=== PATIENT | female | born 1955 | race Caucasian/White ===

== ENCOUNTER 2016-07-13 14:02 | Emergency (ER) | payer MEDICARE ==
--- NOTE | 2016-07-13 14:35 | ERPHSYRPT ---
- History of Present Illness Time Seen by Provider: 07/13/16 14:30 Source: patient Exam Limitations: no limitations Patient Subjective Stated Complaint: pt states she had right great toenail removed a week 1/2 ago. pt states she has pain and area around toe is red. Triage Nursing Assessment: pt pink, warm, dry. right great toes has redness and swelling. tender to touch. Physician History: Patient had right first toenail removed on July 02 of this year due to severe toenail infection. Patient was apparently doing well until 5 days ago when she injured her right first toe walking down steps. Since then she noticed increase right first toe swelling and redness. Denies any drainage, fever or chills. Patient states there is some discomfort with weightbearing, otherwise patient with minimal pain. Method of Injury: direct blow (walking down steps) Occurred: days ago (5) Quality: intermittent Severity of Pain-Max: moderate Severity of Pain-Current: mild Lower Extremities Pain: 1st toe: right (redness and swelling to the area) Allergies/Adverse Reactions: epinephrine Allergy (Verified 07/13/16 14:21) lidocaine Allergy (Verified 07/13/16 14:21) Home Medications: Aspirin EC 325 mg [Ecotrin 325 MG] 325 mg PO DAILY 07/13/16 [History] Clopidogrel Bisulfate [Plavix] 75 mg PO DAILY 07/13/16 [History] Fluoxetine HCl [Prozac] 20 mg PO DAILY 07/13/16 [History] Golimumab [Simponi Aria] 50 mg IV UD 07/13/16 [History] Isosorbide Mononitrate 30 mg [Imdur 30 MG] 30 mg PO DAILY 07/13/16 [History ] Isosorbide Mononitrate [Isosorbide Mononitrate ER] 60 mg PO DAILY 07/13/16 [ History] Lansoprazole 30 mg PO DAILY 07/13/16 [History] Levothyroxine Sodium 100 Mcg [Synthroid 100 Mcg] 100 mcg PO DAILY 07/13/16 [History] Lovastatin 40 mg PO HS 07/13/16 [History] Varenicline Tartrate [Chantix] 1 each PO DAILY 07/13/16 [History] Hx Tetanus, Diphtheria Vaccination/Date Given: Yes (up to date) Hx Influenza Vaccination/Date Given: Yes Hx Pneumococcal Vaccination/Date Given: Yes Immunizations Up to Date: Yes - Review of Systems Constitutional: No Fever, No Chills Eyes: No Symptoms Ears, Nose, & Throat: No Symptoms Respiratory: No Cough, No Dyspnea Cardiac: No Chest Pain, No Edema, No Syncope Abdominal/Gastrointestinal: No Abdominal Pain, No Nausea, No Vomiting, No Diarrhea Genitourinary Symptoms: No Dysuria Musculoskeletal: Injury (R 1st toe), No Back Pain, No Neck Pain Skin: Cellulitis, No Rash Neurological: No Dizziness, No Focal Weakness, No Sensory Changes Psychological: No Symptoms Endocrine: No Symptoms All Other Systems: Reviewed and Negative - Past Medical History Pertinent Past Medical History: Yes Cardiac History: Coronary Artery Disease, High Cholesterol Musculoskeletal History: Arthritis, Rheumatoid Arthritis Psycho-Social History: Depression - Past Surgical History Past Surgical History: Yes Cardiac: Cardiac Catheterization, Cardiac Stent Musculoskeletal: Orthopedic Surgery Female Surgical History: Tubal Ligation - Social History Smoking Status: Former smoker Exposure to second hand smoke: No Drug Use: none Patient Lives Alone: No - Nursing Vital Signs Nursing Vital Signs: Initial Vital Signs Pain Intensity 0 - Physical Exam General Appearance: alert Eyes, Ears, Nose, Throat Exam: moist mucous membranes Neck Exam: non-tender, supple Cardiovascular/Respiratory Exam: chest non-tender, normal breath sounds, regular rate/rhythm, no respiratory distress Gastrointestinal/Abdominal Exam: non-tender, guarding Back Exam: normal inspection, No vertebral tenderness Knees Exam: bilateral knee: non-tender, normal inspection, normal range of motion, no evidence of injury Foot Exam: right foot: pain (R 1st toe), soft tissue tenderness (R 1st toe), swelling (R 1st toe) Neuro/Tendon Exam: normal sensation, normal motor functions Mental Status Exam: alert, oriented x 3, cooperative Skin Exam: normal color, warm, dry - Progress Progress: unchanged Counseled pt/family regarding: diagnosis - Departure Time of Disposition: 14:36 Departure Disposition: Home Clinical Impression: Cellulitis of right toe Condition: Stable Critical Care Time: No Additional Instructions: return for worse toe pain, swelling, discharge, fever, chills or any problems. RX Keflex Prescriptions: Cephalexin Mh 500 mg [Keflex 500 mg] 500 mg PO QID #40 capsule
[2016-07-13 14:50] VITALS: BP 120/80; PULSE 76; O2SAT 96
== END 2016-07-13 14:49 | disposition home or self-care (01) ==
LOC: ED 14:02
DX: L03.031 Cellulitis of right toe (principal); W22.8XXA Striking against or struck by other objects, initial encounter
CPT/HCPCS: 99282

== ENCOUNTER 2016-11-26 11:00 | Emergency (ER) | payer MEDICARE ==
[2016-11-26] MEDS ORDERED: BENADRYL 50 MG/ML IV ONE (11:16)
[2016-11-26] MEDS ORDERED: solu-MEDROL 125 MG IV ONE (11:16)
[2016-11-26] MEDS ORDERED: Pepcid 20 MG VIAL IV ONE ×2 (11:16→11:27)
[2016-11-26] MEDS ORDERED: BENADRYL 50 MG/ML ONE (11:26)
[2016-11-26 11:27] VITALS: O2SAT 96
[2016-11-26] MEDS ORDERED: solu-MEDROL 125 MG ONE (11:27)
[2016-11-26] MEDS ORDERED: Sodium Chloride 0.9% 1000 ML 1,000 ML ONE (11:27)
--- NOTE | 2016-11-26 11:27 | ERPHSYRPT ---
- History of Present Illness Time Seen by Provider: 11/26/16 11:15 Source: patient Exam Limitations: clinical condition Patient Subjective Stated Complaint: PT woke up friday morning with a bite on the left forehead. left eye edema and can not see out of left eye. Triage Nursing Assessment: PT walked into room. skin is pink warm and dry, bite on left forearm, left eyelid swollen and cannot see out of left eye. Physician History: PATIENT WITH HISTORY OR CORONARY ARTERY DISEASE SUSTAINED AN INSECT BITE TO HER LEFT FOREHEAD 3 DAYS AGO ASSOCIATED WITH SWELLING OF FOREHEAD AND LEFT UPPER EYE LID ASSOCIATED WITH FOREHEAD PAIN DISCOMFORT. DENIES FEVER, CHILLS, NIGHTSWEATS, BLURRED VISION. Timing/Duration: day(s) Quality: itchy, painful Severity: moderate (PATIENT COMPLAINS OF ITCHING INITIALLY) Location: other (FOREHEAD AND UPPER FACE) Modifying Factors: Improves With: scratching Associated Symptoms: change in skin texture, edema Allergies/Adverse Reactions: triamcinolone [From Kenalog] Allergy (Severe, Verified 11/26/16 11:24) epinephrine Allergy (Verified 07/13/16 14:21) lidocaine Allergy (Verified 07/13/16 14:21) Home Medications: Aspirin EC 325 mg [Ecotrin 325 MG] 325 mg PO DAILY 07/13/16 [History] Clopidogrel Bisulfate [Plavix] 75 mg PO DAILY 07/13/16 [History] Fluoxetine HCl [Prozac] 40 mg PO DAILY 07/13/16 [History] Golimumab [Simponi Aria] 50 mg IV UD 07/13/16 [History] Isosorbide Mononitrate [Isosorbide Mononitrate ER] 60 mg PO DAILY 07/13/16 [ History] Lansoprazole 30 mg PO DAILY 07/13/16 [History] Levothyroxine Sodium 100 Mcg [Synthroid 100 Mcg] 100 mcg PO DAILY 07/13/16 [History] Lovastatin 40 mg PO HS 07/13/16 [History] Fluticasone/Vilanterol [Breo Ellipta 100-25 Mcg INH] 1 each IH UD PRN 11/26/16 [ History] Metoprolol Tartrate 25 mg PO BID 11/26/16 [History] Hx Tetanus, Diphtheria Vaccination/Date Given: No Hx Influenza Vaccination/Date Given: Yes Hx Pneumococcal Vaccination/Date Given: Yes Immunizations Up to Date: Yes - Review of Systems Constitutional: No Fever, No Chills Eyes: No Symptoms Ears, Nose, & Throat: No Symptoms Respiratory: No Symptoms, No Cough, No Dyspnea Cardiac: No Symptoms, No Chest Pain, No Edema, No Syncope Abdominal/Gastrointestinal: No Symptoms, No Abdominal Pain, No Nausea, No Vomiting, No Diarrhea Genitourinary Symptoms: No Symptoms, No Dysuria Musculoskeletal: No Symptoms, No Back Pain, No Neck Pain Skin: No Symptoms, Other (SWELLING), No Rash Neurological: No Symptoms, No Dizziness, No Focal Weakness, No Sensory Changes Psychological: No Symptoms Endocrine: No Symptoms All Other Systems: Reviewed and Negative - Past Medical History Pertinent Past Medical History: Yes Neurological History: No Pertinent History ENT History: No Pertinent History Cardiac History: Coronary Artery Disease, High Cholesterol Respiratory History: No Pertinent History Endocrine Medical History: Hypothyroidism Musculoskeletal History: Arthritis, Rheumatoid Arthritis GI Medical History: No Pertinent History History: No Pertinent History Psycho-Social History: Depression Female Reproductive Disorders: No Pertinent History - Past Surgical History Past Surgical History: Yes Neuro Surgical History: No Pertinent History Cardiac: Cardiac Catheterization, Cardiac Stent Respiratory: No Pertinent History Gastrointestinal: No Pertinent History Genitourinary: No Pertinent History Musculoskeletal: Orthopedic Surgery Female Surgical History: Tubal Ligation - Social History Smoking Status: Current every day smoker How long have you smoked: 50 Exposure to second hand smoke: Yes Drug Use: none Patient Lives Alone: No - Nursing Vital Signs Nursing Vital Signs: Initial Vital Signs Temperature 98.8 F Pulse Rate 66 Respiratory Rate 21 Blood Pressure [Left Arm] 107/67 Pain Intensity 5 - Physical Exam General Appearance: no apparent distress, alert Eye Exam: PERRL/EOMI, eyes nml inspection (CRUSTY EXUDATE OVER BILATERAL EYELASHES), other (ANGIOEDEMA BOTH UPPER EYE LIDS LEFT GREATER THAN RIGHT ) Ears, Nose, Throat Exam: normal ENT inspection, pharynx normal, moist mucous membranes Neck Exam: normal inspection, non-tender, supple, full range of motion Respiratory Exam: normal breath sounds, lungs clear, No respiratory distress Cardiovascular Exam: regular rate/rhythm, normal heart sounds Gastrointestinal/Abdomen Exam: soft, normal bowel sounds, mass, No tenderness Back Exam: normal inspection, normal range of motion, No CVA tenderness, No vertebral tenderness Extremity Exam: normal inspection, normal range of motion Neurologic Exam: alert, oriented x 3, cooperative, normal mood/affect, sensation nml, No motor deficits Skin Exam: normal color, warm, dry, other (THERE IS FOREHEAD ANGIOEDEMA LEFT LATERAL ASPECT OF FOREHEAD. THERE IS A 3 MM FOCAL SWELLING WITH AVULSION OF WOUND) SpO2 Interpretation: normal SpO2: 96 Oxygen Delivery: Room Air Ordered Tests: Active Orders 24 hr Category Date Time Status Pulse Oximetry (ED) STAT Care 11/26/16 11:16 Active BLOOD CULTURE Stat Lab 11/26/16 12:06 Received CBC W DIFF Stat Lab 11/26/16 11:39 Completed Medication Summary Generic Name Dose Route Start Last Admin Trade Name Freq PRN Reason Stop Dose Admin Sodium Chloride 1,000 mls @ 100 mls/hr 11/26/16 11:30 11/26/16 11:28 Sodium Chloride 0.9% 1000 Ml IV 12/26/16 11:29 100 mls/hr .Q10H CARLOS Administration Discontinued Medications Generic Name Dose Route Start Last Admin Trade Name Freq PRN Reason Stop Dose Admin Acetaminophen/Codeine Phosphate 1 tab 11/26/16 11:48 11/26/16 12:10 Tylenol #3 Tablet PO 11/26/16 11:49 1 tab STAT ONE Administration Acetaminophen/Codeine Phosphate Confirm 11/26/16 12:04 Tylenol #3 Tablet Administered 11/26/16 12:05 Dose 1 tab .ROUTE .STK-MED ONE Diphenhydramine HCl 50 mg 11/26/16 11:16 11/26/16 11:28 Benadryl 50 Mg/Ml IV 11/26/16 11:17 50 mg STAT ONE Administration Diphenhydramine HCl Confirm 11/26/16 11:26 Benadryl 50 Mg/Ml Administered 11/26/16 11:27 Dose 50 mg .ROUTE .STK-MED ONE Erythromycin 3.5 gm 11/26/16 11:48 11/26/16 12:10 Erythromycin 3.5 Gm Ophth. IO 11/26/16 11:49 3.5 gm STAT ONE Administration Erythromycin Confirm 11/26/16 12:04 Erythromycin 1 Gm Administered 11/26/16 12:05 Dose 1 gm .ROUTE .STK-MED ONE Famotidine 20 mg 11/26/16 11:16 11/26/16 11:28 Pepcid 20 Mg Vial IV 11/26/16 11:17 20 mg STAT ONE Administration Famotidine Confirm 11/26/16 11:27 Pepcid 20 Mg Vial Administered 11/26/16 11:28 Dose 20 mg IV .STK-MED ONE Piperacillin Sod/Tazobactam 100 mls @ 100 mls/hr 11/26/16 11:55 11/26/16 12: 11 Sod 4.5 gm/ Dextrose IV 11/26/16 12:54 100 mls/hr STAT ONE Administration Methylprednisolone Sodium Succinate 125 mg 11/26/16 11:16 11/26/16 11:28 Solu-Medrol 125 Mg IV 11/26/16 11:17 125 mg STAT ONE Administration Methylprednisolone Sodium Succinate Confirm 11/26/16 11:27 Solu-Medrol 125 Mg Administered 11/26/16 11:28 Dose 125 mg .ROUTE .STK-MED ONE Lab/Rad Data: Laboratory Result Diagrams 11/26/16 11:39 Laboratory Results 11/26/16 Range/Units 11:39 WBC 10.3 (4.0-10.5) K/mm3 RBC 4.60 (4.1-5.4) M/mm3 Hgb 13.8 (12.0-16.0) gm/dl Hct 43.9 (35-47) % MCV 95.4 (78-100) fl MCH 30.0 (26-32) pg MCHC 31.4 L (32-36) g/dl RDW 14.0 (11.5-14.0) % Plt Count 312 (150-450) K/mm3 MPV 9.8 H (6-9.5) fl Gran % 65.2 (36.0-66.0) % Lymphocytes % 23.3 L (24.0-44.0) % Monocytes % 9.2 (0.0-12.0) % Eosinophils % 1.9 (0.00-5.0) % Basophils % 0.4 (0.0-0.4) % Basophils # 0.04 (0-0.4) - Progress Progress: improved Progress Note: 11/26/16 12:40 PATIENT GIVEN IV NORMAL SALINE 100ML/HR, BENADRYL 50MG, SOLUMEDROL 125MG, PEPCID 20MG IV, AFTER 2 SETS OF BLOOD CULTURES OBTAINED IV ZOSYN 4.5GM GIVEN Counseled pt/family regarding: lab results, diagnosis, need for follow-up - Departure Time of Disposition: 13:25 Departure Disposition: Home Clinical Impression: ANGIOEDEMA/EARLY CELLULITIS INSECT BITE, CONJUNCTIVITIS Condition: Stable Critical Care Time: No Referrals: ABRAHAM JEFFERS [Primary Care Provider] - Instructions: Headache Additional Instructions: PREDNISONE 20MG, 2 TABLETS DAILY FOR 5 DAYS. TAKE OVER THE COUNTER BENADRYL 50MG EVERY 4-6 HOURS FOR ITCHING NEEDED. NORCO 10/325 EVERY 4 HOURS FOR HEADACHE PAIN DISCOMFORT. APPLY 1/2 INCH RIBBON INTO BOTHE EYES EVERY 8 HOURS FOR 7 DAYS. CONSULT YOUR PRIMARY CARE PHYSICIAN TODAY TO SCHEDULE AN APPOINTMENT. ANTIBIOTIC AUGMENTIN 875MG TWICE DAILY FOR 10 DAYS. WATCH FOR SIGNS OF INCREASING INFECTION, REDNESS, SWELLING, FEVER OR CHILLS. Prescriptions: Amox Tr/Potass Clav. 875 mg [Augmentin 875-125 Tablet] 875 mg PO BID #20 tablet Erythromycin Base 3.5 gm [Erythromycin 3.5 GM OPHTH.] 3.5 gm OP TID #3.5 tube Prednisone 20 mg [Deltasone 20 mg] 2 tab PO DAILY #10 tablet
[2016-11-26] MEDS ORDERED: Sodium Chloride 0.9% 1000 ML 1,000 ML IV SCH (11:30)
[2016-11-26] MEDS ORDERED: Erythromycin 3.5 GM OPHTH. IO ONE (11:48)
[2016-11-26] MEDS ORDERED: Tylenol #3 Tablet PO ONE (11:48)
[2016-11-26] MEDS ORDERED: Zosyn INJ 4.5 GM in D5w 100ML Mini Bag 100 ML 100 ML IV ONE (11:55)
[2016-11-26 12:03] LABS: BASOPHIL % 0.4 % (0.0-0.4); Eosinophil % 1.9 % (0.00-5.0); Granulocytes % 65.2 % (36.0-66.0); Lymphocytes % 23.3 % (24.0-44.0); Mean Cell Volume 95.4 fl (78-100); Mean Platelet Volume 9.8 fl (6-9.5); Monocytes % 9.2 % (0.0-12.0); Platelet Count 312 K/mm3 (150-450); White Blood Count 10.3 K/mm3 (4.0-10.5)
[2016-11-26] MEDS ORDERED: Erythromycin 1 GM ONE (12:04)
[2016-11-26] MEDS ORDERED: Tylenol #3 Tablet ONE (12:04)
[2016-11-26 12:16] VITALS: BP 107/67
[2016-11-26 12:45] VITALS: PULSE 66
== END 2016-11-26 13:30 | disposition home or self-care (01) ==
LOC: ED 11:00
DX: T78.3XXA Angioneurotic edema, initial encounter (principal); L03.211 Cellulitis of face; S00.86XA Insect bite (nonvenomous) of other part of head, initial encounter; H10.9 Unspecified conjunctivitis
CPT/HCPCS: 36415; 85025; 87040; 96374; 96375; 99284; J1200; J2543; J2930; A9270-GY

== ENCOUNTER 2018-02-08 15:48 | Emergency (ER) | payer MEDICARE ==
[2018-02-08] MEDS ORDERED: Sodium Chloride 0.9% 1000 ML 1,000 ML IV STA (16:33)
[2018-02-08] MEDS ORDERED: CLINDAMYCIN-D5W 600 MG/50 ML*** 600 MG/50 ML BAG IV STA (16:34)
--- NOTE | 2018-02-08 16:41 | ERPHSYRPT ---
- History of Present Illness Time Seen by Provider: 02/08/18 16:27 Source: patient Exam Limitations: no limitations Patient Subjective Stated Complaint: states was bitten by an insect on left breast four days ago. noticed a blister at that time and now has redness and pain to area. Triage Nursing Assessment: ambulated to room per self. skin w/d, color normal, resp easy. has large red swollen area to left breast with dark area in the middle. no drainage noted. tender to touch. Physician History: This is a 62-year-old white female with history of coronary artery disease, hyperlipidemia, hypothyroidism, arthritis, rheumatoid arthritis, depression Patient arrives with complaint of painful bump on her left breast for 3-4 days according to the patient him he thought that he was bitten by a bug she states she had a small blister on the left breast. She states she might have scratched it now complains of painful lump on her left breast, She denies fevers. Past medical history includes coronary artery disease, hyperlipidemia, hypothyroidism, arthritis, rheumatoid arthritis, depression Past surgical history includes cardiac catheter, cardiac stent, orthopedic surgery, tubal ligation. Social history positive tobacco use. Timing/Duration: day(s) (3-4 days) Severity: moderate Modifying Factors: Improves With: nothing Associated Symptoms: other (Pain in right breast), No nausea, No vomiting, No abdominal pain, No shortness of breath, No heartburn, No diaphoresis, No cough, No chills, No chest pain, No fever, No headaches, No loss of appetite, No malaise, No rash, No syncope, No seizure, No weakness Allergies/Adverse Reactions: triamcinolone [From Kenalog] Allergy (Severe, Verified 02/08/18 16:21) epinephrine Allergy (Verified 02/08/18 16:21) lidocaine Allergy (Verified 02/08/18 16:21) Home Medications: Aspirin EC 325 mg [Ecotrin 325 MG] 325 mg PO DAILY 07/13/16 [History] Clopidogrel Bisulfate [Plavix] 75 mg PO DAILY 07/13/16 [History] Fluoxetine HCl [Prozac] 40 mg PO DAILY 07/13/16 [History] Golimumab [Simponi Aria] 50 mg IV UD 07/13/16 [History] Isosorbide Mononitrate [Isosorbide Mononitrate ER] 60 mg PO DAILY 07/13/16 [ History] Lansoprazole 30 mg PO DAILY 07/13/16 [History] Levothyroxine Sodium 100 Mcg [Synthroid 100 Mcg] 100 mcg PO DAILY 07/13/16 [History] Lovastatin 40 mg PO HS 07/13/16 [History] Fluticasone/Vilanterol [Breo Ellipta 100-25 Mcg INH] 1 each IH UD PRN 11/26/16 [ History] Metoprolol Tartrate 25 mg PO BID 11/26/16 [History] Bromfenac Sodium [Prolensa] 3 ml OP UD 02/08/18 [History] Ofloxacin Ophth 5 ml [Ocuflox OPHTHALMIC 5 ML] 10 ml OP UD 02/08/18 [ History] Prednisolone Acetate/Pf [Prednisolone Acet 1% Eye Drop] 5 ml OP UD 02/08/18 [ History] Hx Tetanus, Diphtheria Vaccination/Date Given: No Hx Influenza Vaccination/Date Given: Yes Hx Pneumococcal Vaccination/Date Given: Yes - Review of Systems Constitutional: No Fever, No Chills Eyes: No Symptoms Ears, Nose, & Throat: No Symptoms Respiratory: No Cough, No Dyspnea Cardiac: No Chest Pain, No Edema, No Syncope Abdominal/Gastrointestinal: No Abdominal Pain, No Nausea, No Vomiting, No Diarrhea Genitourinary Symptoms: No Dysuria Musculoskeletal: No Back Pain, No Neck Pain Skin: Other (Painful lump in left breast) Neurological: No Dizziness, No Focal Weakness, No Sensory Changes Psychological: No Symptoms Endocrine: No Symptoms All Other Systems: Reviewed and Negative - Past Medical History Pertinent Past Medical History: Yes Neurological History: No Pertinent History ENT History: Cataracts Cardiac History: Coronary Artery Disease, High Cholesterol Respiratory History: No Pertinent History Endocrine Medical History: Hypothyroidism Musculoskeletal History: Arthritis, Rheumatoid Arthritis GI Medical History: No Pertinent History History: No Pertinent History Psycho-Social History: Depression Female Reproductive Disorders: No Pertinent History - Past Surgical History Past Surgical History: Yes Neuro Surgical History: No Pertinent History Cardiac: Cardiac Catheterization, Cardiac Stent Respiratory: No Pertinent History Gastrointestinal: No Pertinent History Genitourinary: No Pertinent History Musculoskeletal: Orthopedic Surgery Female Surgical History: Tubal Ligation Other Surgical History: right ankle fracture - Social History Smoking Status: Former smoker How long have you smoked: 50 Exposure to second hand smoke: No Drug Use: none Patient Lives Alone: No - Female History Hx Now: No - Nursing Vital Signs Nursing Vital Signs: Initial Vital Signs Temperature 99.1 F 02/08/18 15:53 Pulse Rate 77 02/08/18 15:53 Respiratory Rate 16 02/08/18 15:53 Blood Pressure 134/73 02/08/18 15:53 O2 Sat by Pulse Oximetry 96 02/08/18 15:53 Pain Scale Pain Intensity 10 - Physical Exam General Appearance: mild distress Eye Exam: PERRL/EOMI, eyes nml inspection Ears, Nose, Throat Exam: normal ENT inspection, TMs normal, pharynx normal, moist mucous membranes Neck Exam: normal inspection, non-tender, supple, full range of motion Respiratory Exam: normal breath sounds, lungs clear, No respiratory distress Cardiovascular Exam: regular rate/rhythm, normal heart sounds, normal peripheral pulses Gastrointestinal/Abdomen Exam: soft, normal bowel sounds, No tenderness, No mass Back Exam: normal inspection, normal range of motion, No CVA tenderness, No vertebral tenderness Extremity Exam: normal inspection, normal range of motion, pelvis stable Neurologic Exam: alert, oriented x 3, cooperative, normal mood/affect, nml cerebellar function, nml station & gait, sensation nml, No motor deficits Skin Exam: other (patient' left breast with raises 2 cm area with depressed center dark in color , underlying this is a firm area approxinmately 8 cm . mild erythena overlying this area.) Lymphatic Exam: No axilla node tender (L) SpO2: 96 Oxygen Delivery: Room Air Ordered Tests: Active Orders 24 hr Category Date Time Status IV Insertion STAT Care 02/08/18 16:07 Active BLOOD CULTURE Stat Lab 02/08/18 16:49 Received CBC W DIFF Stat Lab 02/08/18 16:00 Completed CMP Stat Lab 02/08/18 16:00 Completed Medication Summary Discontinued Medications Generic Name Dose Route Start Last Admin Trade Name Freq PRN Reason Stop Dose Admin Clindamycin HCl/Dextrose 600 mg in 50 mls @ 100 mls/hr 02/08/18 16:34 16:47 Clindamycin-D5w 600 Mg/50 Ml IV 02/08/18 17:03 100 mls/hr STAT STA Administration Sodium Chloride 1,000 mls @ 999 mls/hr 02/08/18 16:33 02/08/18 16:48 Sodium Chloride 0.9% 1000 Ml IV 02/08/18 17:33 999 mls/hr .Q1H1M STA Administration Sodium Chloride Confirm 02/08/18 16:46 Sodium Chloride 0.9% 1000 Ml Administered 02/08/18 16:47 Dose 1,000 mls @ ud .ROUTE .STK-MED ONE Clindamycin HCl/Dextrose Confirm 02/08/18 16:46 Clindamycin-D5w 600 Mg/50 Ml Administered 02/08/18 16:47 Dose 600 mg in 50 mls @ ud IV .STK-MED ONE Lab/Rad Data: Laboratory Result Diagrams 02/08/18 16:00 02/08/18 16:00 Laboratory Results 02/08/18 02/08/18 Range/Units 16:00 16:00 WBC 14.5 H (4.0-10.5) K/mm3 RBC 4.16 (4.1-5.4) M/mm3 Hgb 12.3 (12.0-16.0) gm/dl Hct 38.4 (35-47) % MCV 92.3 (78-100) fl MCH 29.6 (26-32) pg MCHC 32.0 (32-36) g/dl RDW 14.6 H (11.5-14.0) % Plt Count 415 (150-450) K/mm3 MPV 9.6 H (6-9.5) fl Gran % 70.6 H (36.0-66.0) % Eos # (Auto) 0.35 (0-0.5) Absolute Lymphs (auto) 2.57 (1.0-4.6) Absolute Monos (auto) 1.29 (0.0-1.3) Lymphocytes % 17.7 L (24.0-44.0) % Monocytes % 8.9 (0.0-12.0) % Eosinophils % 2.4 (0.00-5.0) % Basophils % 0.4 (0.0-0.4) % Absolute Granulocytes 10.27 H (1.4-6.9) Basophils # 0.06 (0-0.4) Sodium 138 (137-145) mmol/L Potassium 4.9 (3.5-5.1) mmol/L Chloride 104 (98-107) mmol/L Carbon Dioxide 24 (22-30) mmol/L Anion Gap 15.0 (5-15) MEQ/L BUN 15 (7-17) mg/dL Creatinine 0.80 (0.52-1.04) mg/dL Estimated GFR > 60.0 ML/MIN Glucose 136 H (74-106) mg/dL Calcium 9.4 (8.4-10.2) mg/dL Total Bilirubin 0.40 (0.2-1.3) mg/dL AST 21 (14-36) U/L ALT 11 (0-35) U/L Alkaline Phosphatase 128 H (38-126) U/L Serum Total Protein 7.1 (6.3-8.2) g/dL Albumin 4.0 (3.5-5.0) g/dL - Progress Progress: improved Progress Note: 02/08/18 17:35 This is a 62-year-old white female with history of coronary artery disease, hyperlipidemia, hypothyroidism, arthritis, depression, she arrives with complaints of what she experiences bug bite in her left breast proximally 4 days ago at that time she noticed the blister she comes in at this time she has a raised area approximately 2 cm in diameter with a cratered center. This is discolored and somewhat dark in color. Underlying this patient has what appears to be 8 cm firm area This does not appear to be soft does not appear to be something that can be drained at this time and is concerning for a mass. Patient did have mild erythema overlying the area. I did go ahead and get blood cultures on the patient chemistry CBC. I've gone ahead and given the patient clindamycin 600 mg IV. And we'll plan to discharge her with clindamycin 300 mg by mouth 3 times a day. I've contacted Dr. Carlos Quintana and discussed the patient's case with him. He has agreed To have either him or one of his associates see the patient she is to call tomorrow and schedule appointment for within the next couple of days. - Departure Time of Disposition: 17:38 Departure Disposition: Home Clinical Impression: possible right breast mass Insect bite of right breast Qualifiers: Encounter type: initial encounter Qualified Code(s): S20.161A - Insect bite ( nonvenomous) of breast, right breast, initial encounter Condition: Fair Critical Care Time: No Referrals: ABRAHAM JEFFERS [Primary Care Provider] - Additional Instructions: Return home. Clindamycin as prescribed. Contact Dr. Quintana's office tomorrow morning and let them know that you were seen in the emergency room, and that we talked with him and that you need an appointment in the next couple of days . Return for acute distress or for severe symptoms. Prescriptions: Clindamycin HCl 300 mg PO TID #30 capsule
[2018-02-08] MEDS ORDERED: Sodium Chloride 0.9% 1000 ML 1,000 ML ONE (16:46)
[2018-02-08] MEDS ORDERED: CLINDAMYCIN-D5W 600 MG/50 ML*** 600 MG/50 ML BAG IV ONE (16:46)
[2018-02-08 16:52] LABS: BASOPHIL % 0.4 % (0.0-0.4); Basophil (Absolute #) 0.06 (0-0.4); Eosinophil % 2.4 % (0.00-5.0); Eosinophil (Absolute #) 0.35 (0-0.5); Granulocyte Absolute (ANC) 10.27 (1.4-6.9); Granulocytes % 70.6 % (36.0-66.0); Hematocrit 38.4 % (35-47); Hemoglobin 12.3 gm/dl (12.0-16.0); Lymphocyte (Absolute #) 2.57 (1.0-4.6); Lymphocytes % 17.7 % (24.0-44.0); Mean Cell Volume 92.3 fl (78-100); Mean Corpuscular Hemoglobin 29.6 pg (26-32); Mean Platelet Volume 9.6 fl (6-9.5); Monocyte (Absolute #) 1.29 (0.0-1.3); Monocytes % 8.9 % (0.0-12.0); Platelet Count 415 K/mm3 (150-450); Red Blood Count 4.16 M/mm3 (4.1-5.4); Red Cell Distribution Width 14.6 % (11.5-14.0); White Blood Count 14.5 K/mm3 (4.0-10.5)
[2018-02-08 16:57] LABS: ALKALINE PHOSPHATASE 128 U/L (38-126); BLOOD UREA NITROGEN 15 mg/dL (7-17); CHLORIDE 104 mmol/L (98-107); Calcium 9.4 mg/dL (8.4-10.2); Carbon Dioxide 24 mmol/L (22-30); Glucose 136 mg/dL (74-106); Potassium 4.9 mmol/L (3.5-5.1); SGOT/AST 21 U/L (14-36); SGPT/ALT 11 U/L (0-35); SODIUM 138 mmol/L (137-145); Total Protein 7.1 g/dL (6.3-8.2)
[2018-02-08 17:57] VITALS: BP 105/74; PULSE 68; O2SAT 99
== END 2018-02-08 18:03 | disposition home or self-care (01) ==
LOC: ED 15:48
DX: S20.161A Insect bite (nonvenomous) of breast, right breast, initial encounter (principal); Z79.82 Long term (current) use of aspirin; Z79.899 Other long term (current) drug therapy
CPT/HCPCS: 36000; 36415; 80053; 85025; 87040; 96360; 96365; 99284